=== PATIENT | female | born 1985 | race Caucasian/White ===

== ENCOUNTER 2019-11-12 11:34 | Emergency (ER) | payer OTHER, SELFPAY ==
[2019-11-12 11:41] VITALS: BP 132/90; PULSE 92; RESP 18; TEMP 36.8; O2SAT 98
--- NOTE | 2019-11-12 12:03 | ED.URI ---
HPI - URI/Sore Throat General Chief Complaint: Upper Respiratory Infection Stated Complaint: SINUS CONGESTION Time Seen by Provider: 11/12/19 12:03 Source: patient Mode of arrival: ambulatory Limitations: no limitations History of Present Illness HPI Narrative: 33 year old female who [facility] with 5 day history of sinus congestion, sinus pressure, sinus drainage of yellow mucous, ear discomfort and sore throat. Patient states that she has been taking Ibuprofen and Mucinex D with no resolution in her symptoms. Patient states that she has not noted fevers, chills or sweats, denies any cough or chest congestion. Patient denies any known exposure to anyone with COVID. Respirations are even an non labored with no tachypnea or accessory muscle use, SAO2 98% on room air. MD elicited complaint: cough, sore throat, rhinorrhea, nasal congestion and sinus pain Pertinent past history: sinusitis Onset (ago): day(s) (5) Consistency: progressively worsening Severity: mild Pain scale (0-10): 2 Description of mucous: yellow Able to tolerate fluids by mouth: Yes Exacerbating factors: swallowing and leaning forward Relieving factors: nothing Associated symptoms: headache, rhinorrhea, nasal congestion and sore throat Treatments prior to arrival: other (mucinex DM) Related Data Allergies Allergy/AdvReac Type Severity Reaction Status Date / Time No Known Allergies Allergy Verified 11/12/19 11:45 Review of Systems Review of Systems: Narrative: CONSTITUTIONAL: Denies fever, chills, or sweats. EYES: Denies visual changes, redness, or discharge. ENT: positive yellow rhinorrhea, congestion, sore throat, and otalgia. CARDIOVASCULAR: Denies chest pain, palpitations, or edema. RESPIRATORY: Denies cough or dyspnea. GASTROINTESTINAL: Denies abdominal pain, nausea, vomiting, or diarrhea. GENITOURINARY: Denies dysuria or hematuria. SKIN: Denies rash or itching. MUSCULOSKELETAL: Denies back pain, joint pain, or myalgia. NEUROLOGIC:positive frontal headache,no numbness, or weakness. PSYCHIATRIC: Denies anxiety or depression. All systems reviewed & are unremarkable except as noted in HPI and below PMFSH Social History Social History (Updated 11/13/19 @ 14:48 by Jess Beaulieu NP) Smoking status: Never smoker Living arrangements: with family Gender identity (if verbalized by the patient): Female Comments At time of signature, agree with nursing past medical, surgical, social and family history. There is no relevant family history pertinent to the presenting complaint Exam Narrative: Exam Narrative: GENERAL: Well-appearing, well-nourished, and in no acute distress. HEAD: Normocephalic, atraumatic. EYES: PERRLA and EOMI. ENT: Nares red with turvinates red and swollen, yellow rhinorrhea no epistaxis, facial and frontal sinus pressure. Mucous membranes moist.TM's normal with dull light reflex, throat pink with post nasal drainage noted, no tonsil enlargement noted NECK: Supple.no lymphadenopathy CHEST: Clear to auscultation. No respiratory distress.no cough, SAO2 98% on room air HEART: Regular rate and rhythm. No murmur heard. Normal peripheral pulses. ABDOMEN: Soft, nontender, nondistended, normal active bowel sounds. EXTREMITIES: Normal range of motion. No edema. SKIN: Warm, dry, no rash. NEURO: No focal deficits. Alert and oriented x3. Course Vital Signs Vital signs: Vital Signs Temperature 36.8 C 11/12/19 11:41 Pulse Rate 92 11/12/19 11:41 Respiratory Rate 18 11/12/19 11:41 Blood Pressure 132/90 11/12/19 11:41 Pulse Oximetry 98 11/12/19 11:41 Temperature 36.8 C 11/12/19 11:41 Pulse Rate 92 11/12/19 11:41 Respiratory Rate 18 11/12/19 11:41 Blood Pressure 132/90 11/12/19 11:41 Pulse Oximetry 98 11/12/19 11:41 MDM - URI/Sore Throat Differential Diagnosis Differential diagnosis: Likely upper respiratory infection, sinusitis, pharyngitis and other (rhinosinusitis) Medical Records Attestatio
== END 2019-11-12 12:27 | disposition home or self-care (01) ==
PROVIDERS: Emergency Provider Registered Nurse
DX: J01.40 Acute pansinusitis, unspecified (principal)
CPT/HCPCS: 99213; G0463

== ENCOUNTER → 2020-11-23 11:30 | Outpatient (CLI) | payer OTHER, SELFPAY ==
--- NOTE | ~2020-11-23 | US_ITS ---
EXAMINATION: US transvaginal DATE: 11/23/2020 11:53 INDICATION: Vaginal spotting between periods. Pelvic pain. Comparison:No prior studies for comparison. TECHNIQUE: Multiple transabdominal and endovaginal sonographic images of the pelvis performed. FINDINGS: The uterus measures 6.9 x 3.4 x 4.3 cm. The endometrial complex measures 6.5 mm. There is a n IUD in the endometrium. The right ovary measures 2.9 x 1.6 x 1.7 cm and the left ovary measures 2.9 x 2.3 x 1.7 cm. There ar e small follicles in each ovary. Normal doppler signal in both ovaries. There is no free fluid in the pelvis. There are no abnormal masses seen on either side. IMPRESSION: 1. Unremarkable pelvic ultrasound. IUD located in the endometrium. Reviewed, dictated and finalized at location A.
== END ==
PROVIDERS: Visit Provider Nurse Practitioner
DX: N93.8 Other specified abnormal uterine and vaginal bleeding (principal); R10.2 Pelvic and perineal pain; Z97.5 Presence of (intrauterine) contraceptive device
CPT/HCPCS: 76830

== ENCOUNTER 2022-05-20 19:54 | Outpatient (NON) | payer OTHER, SELFPAY | END 2022-05-20 19:55 | disposition home or self-care (01) | PROVIDERS: PCP Family Medicine; Visit Provider Family Medicine | DX: R10.2 Pelvic and perineal pain (principal) | CPT/HCPCS: 87086; 87088 ==

== ENCOUNTER 2022-05-24 07:58 | Outpatient (CLI) | payer OTHER, SELFPAY ==
[2022-05-24 08:43] LABS: Hematocrit 41.3 % (37.0-47.0); Mean Corpuscular HGB Conc 33.9 g/dl (32-36); Mean Corpuscular Hemoglobin 30.8 pg (26-34); Platelet Count Result 330 k/mm3 (150-375); Red Blood Count 4.54 M/mm3 (4.2-5.4); Red Cell Distribution Width 12.2 % (11.5-14.5); White Blood Count 8.3 K/mm3 (4.5-10.0)
[2022-05-24 09:05] LABS: Alanine Aminotransferase 21 U/L (6-35); Alkaline Phosphatase 60 U/L (38-126); Anion Gap 5 mmol/L (8-16); Aspartate Amino Transferase 24 U/L (14-36); Bilirubin,Total 0.6 mg/dL (0.2-1.3); Blood Urea Nitrogen 16 mg/dL (7-17); Calcium 8.9 mg/dL (8.4-10.2); Carbon Dioxide 27 mmol/L (22-30); Chloride 105 mmol/L (98-107); Estimated Glomerular Filt Rate > 60; Glucose 90 mg/dL (65-110); Potassium 3.9 mmol/L (3.4-5.0); Sodium 137 mmol/L (137-145)
== END 2022-05-24 07:59 | disposition home or self-care (01) ==
PROVIDERS: PCP Family Medicine; Visit Provider Family Medicine
DX: Z00.00 Encounter for general adult medical examination without abnormal findings (principal)
CPT/HCPCS: 36415; 80053; 84443; 85027

== ENCOUNTER → 2022-12-21 13:19 | Outpatient (CLI) | payer OTHER, SELFPAY ==
--- NOTE | ~2022-12-21 | US_ITS ---
EXAMINATION: US pelvic complete DATE: 12/21/2022 13:32 INDICATION: Right lower quadrant pain TECHNIQUE: Multiple transabdominal sonographic images of the pelvis were obtained. COMPARISON: 11/23/2020 FINDINGS: The uterus measures 8.4 x 3.4 x 3.8 cm. The endometrial complex measures 5 mm. The right ov tan measures 5.2 x 3.4 x 4.1 cm and contains a 4.0 cm simple cyst. The left ovary measures 2.8 x 1.9 x 2.2 cm. There is normal vascular flow in the ovaries. There is no free fluid in the pelvis. IMPRESSION: 1. No sonographic correlate for the patient's symptoms. Reviewed, dictated and finalized at location A.
== END ==
PROVIDERS: PCP Obstetrics & Gynecology Gynecology; Visit Provider Obstetrics & Gynecology Gynecology
DX: R10.31 Right lower quadrant pain (principal)
CPT/HCPCS: 76856

== ENCOUNTER 2024-10-19 08:37 | Emergency (ER) | payer OTHER, SELFPAY ==
--- NOTE | 2024-10-19 08:40 | ED_ITS ---
HPI - Skin/Abscess/Foreign Bdy General Chief complaint: Skin/Abscess/Foreign Body Stated complaint: cheek swelling/redness Time Seen by Provider: 10/19/24 08:53 Source: patient, RN notes reviewed and old records reviewed Mode of arrival: ambulatory Limitations: no limitations History of Present Illness HPI narrative: 38-year-old female presents to the [facility] with lip swelling, redness and bilateral arms. States that it has been going since Monday, 3 days. Had been on vacation and reports she sat shade, worsened screen. Onset (ago): day(s) (3) Related Data Home Medications ?Medication ?Instructions ?Recorded ?Confirmed ?Last Taken ?Type No Home Medications 10/19/24 10/19/24 Unknown History Allergies Allergy/AdvReac Type Severity Reaction Status Date / Time No Known Allergies Allergy Verified 10/19/24 08:54 Review of Systems 2 Review of Systems: All systems reviewed & are unremarkable except as noted in HPI and below Constitutional: Constitutional: Reports no additional constitutional complaints ENT: Reports system reviewed and no additional complaints, except as documented Cardiovascular: Cardiovascular: Reports no additional cardiovascular complaints, Denies chest pain and Denies dyspnea Respiratory: Respiratory: Reports no additional respiratory complaints, Denies chest congestion, Denies cough and Denies dyspnea Musculoskeletal: Musculoskeletal: Reports no additional musculoskeletal complaints Integumentary/Breasts: Skin/Breast: Reports as per HPI [facility] Family History Family History Mother Hypertension Social History Social History Smoking status: Never smoker Alcohol intake: current Substance use: never Lack of Transportation: No Lack of Food: Never True Current Housing: I Have Housing Concerned About Future Housing: No Difficulty Paying Gas/Electric Bills: No Difficulty Paying for Meds: No Currently Unemployed: No Education: Master's Degree or Higher Difficulty w/ Childcare or Family Care: No Living arrangements: with family Occupation/Education: occupation Gender identity (if verbalized by the patient): Female Comments At the time of my signature, I reviewed and agree with the nursing past medical, surgical, social, and family history. There is no relevant family history pertinent to the patient complaint. Exam Const: General: cooperative, healthy appearing, comfortable, no acute distress, well developed, alert and well nourished Nutritional Appearance: well nourished Orientation/consciousness: patient oriented x3 Limitations: no limitations HENMT: Head: normal to inspection Ears: hearing grossly normal bilaterally and external ears normal Mouth: Yes Normal oral and palatal mucosa present, Yes lip normal, Yes tongue normal and Yes moist mucous membranes Eyes: General: appearance normal, both eyes and all related structures Alignment and Position: alignment normal Neck: Neck: normal visual inspection, full ROM, no lymphadenopathy and no meningeal signs Chest: Chest palpation & inspection: normal inspection of the chest Resp: Effort & Inspection: normal respiratory effort and able to speak in complete sentences Auscultation: clear to auscultation bilaterally, no crackles, no rales, no rhonchi and no wheezes Cardio: Rate: regular rate Skin: General skin exam: normal color and no rashes or lesions noted Rashes: rashes noted Other: Red cheeks, mild swelling. Red arms most consistent with sunburn with small blistery areas Neuro: General: patient oriented x3, gait normal, moves all extremities and no meningeal signs Cognition (Neuro): normal cognition Speech: normal speech Gait exam (Neuro): Normal gait present Extrem: General: normal to inspection, full ROM, capillary refill normal and normal gait Psych: Appearance: grossly normal and well kempt Mental Status: mental status grossly normal Speech and movement: Normal speech and movement present and Clear speech present Affect: normal affect Attitude: cooperative Course Course Level of Care: Express Care Visit Vital Signs Vital signs: Vital Signs Temperature 97.7 F 10/19/24 08:51 Pulse Rate 72 10/19/24 08:51 Respiratory Rate 18 10/19/24 08:51 Blood Pressure 134/76 10/19/24 08:51 Pulse Oximetry 98 10/19/24 08:51 Oxygen Delivery Room Air 10/19/24 08:51 Temperature 97.7 F 10/19/24 08:51 Pulse Rate 72 10/19/24 08:51 Respiratory Rate 18 10/19/24 08:51 Blood Pressure 134/76 10/19/24 08:51 Pulse Oximetry 98 10/19/24 08:51 Oxygen Delivery Room Air 10/19/24 08:51 Reviewed MDM - Skin/Abscess/Foreign Bdy MDM Narrative Medical decision making narrative: Patient presents with concern for sun poisoning. Denies any fevers, nausea, vomiting, diarrhea. Able to maintain hydration Patient with sunburn to bilateral cheeks and bilateral for arms. Patient appropriate for outpatient treatment with close follow-up Discharge instructions reviewed with patient, as well as provided in writing per nursing staff. The instructions also include specific and strict return/GO TO THE ER as well as f/u information. All questions have been answered, and the patient deny any further questions with discharge and discharge plan. Some parts of this dictation were generated by voice recognition software and may contain typographical and/or grammatical inaccuracies. Differential Diagnosis Differential diagnosis: Likely abscess of skin or subcutaneous tissue, viral exanthem, urticaria, cellulitis, eczema and contact dermatitis Critical Care Time Critical Care Time Critical Care Time: No Discharge Plan Discharge Clinical Impression: Rash, Sun exposure, moderate Patient Disposition: Home Condition: Stable Instructions: Sunburn (ED), Skin Cancer Prevention (ED) Additional Instructions: * Taking a cool (not cold) shower or bath * Applying cool compresses * Drinking extra fluids to include water, Gatorade, Pedialyte and ice pops. Avoid caffeinated carbonated beverages * Taking ibuprofen or acetaminophen to ease pain * Using aloe gel or a moisturizer like Aquaphor * Applying hydrocortisone cream can help reduce inflammation Patient Language: Swedish Prescriptions: No Action No Home Medications Follow-up/Referrals: PHYSICIAN,FURNACE CONVERTER [Primary Care Provider] - Stand Alone Forms: Work/School Release IP Time of Disposition: 09:02
[2024-10-19 08:51] VITALS: BP 134/76; PULSE 72; RESP 18; TEMP 36.5; O2SAT 98
== END 2024-10-19 09:08 | disposition home or self-care (01) ==
PROVIDERS: Emergency Provider Nurse Practitioner; Referring Provider Emergency Medicine
DX: L55.9 Sunburn, unspecified (principal); R21 Rash and other nonspecific skin eruption
CPT/HCPCS: 99213; G0463